=== PATIENT | female | born 1990 | race African-American/Black ===

== ENCOUNTER 2022-02-10 20:48 | Emergency (ER) | payer SELFPAY ==
[~2022-02-10] VITALS: Ht 162.6 cm; Wt 142.0 kg
[2022-02-10] MEDS ORDERED: BO1 TP (21:34)
[2022-02-10 22:17] VITALS: BP 114/85
== END 2022-02-10 22:20 | disposition home or self-care (01) ==
LOC: ER 20:48
DX: S21.012A Laceration without foreign body of left breast, initial encounter (principal); Y08.89XA Assault by other specified means, initial encounter; Y93.9 Activity, unspecified; Y92.9 Unspecified place or not applicable
CPT/HCPCS: 12013; 99283

== ENCOUNTER 2023-02-04 15:08 | Emergency (ER) | payer MEDICAID ==
[~2023-02-04] VITALS: Ht 162.6 cm; Wt 149.7 kg
[~2023-02-04 15:08] MED LIST: BO1 TP
[2023-02-04 15:45] VITALS: BP 151/98; TEMP 99.9
[2023-02-04] MEDS ORDERED: KETOROLAC 30MG/ML VIAL IV STA (18:16)
[2023-02-04] MEDS ORDERED: IPRATROPIUM BROMIDE (0.02%) 0.5MG/2.5ML NEB HHN STA (18:16)
[2023-02-04] MEDS ORDERED: SODIUM CHLORIDE 0.9% 1,000 ML IV ONE (18:30)
[2023-02-04] MEDS ORDERED: ALBUTEROL (0.083%) 2.5MG/3ML NEB HHN SCH (18:30)
[2023-02-04 19:24] LABS: BASOPHILS % 0.5 % (0.0-2.0); EOSINOPHILS % 0.3 % (0.0-5.0); HEMOGLOBIN. 12.4 g/dL (12.0-16.0); LYMPHOCYTES % 46.5 % (20.0-50.0); MEAN CORPUSCULAR HEMOGLOBIN 26.3 pg (28.0-32.0); MEAN CORPUSCULAR HGB CONC 32.6 g/dL (31.0-37.0); MEAN CORPUSCULAR VOLUME 80.6 fL (81.0-99.0); MEAN PLATELET VOLUME 8.2 fl (7.4-10.4); MONOCYTES % 13.4 % (2.0-8.0); NEUTROPHILS % 39.3 % (40.0-76.0); PLATELET 330 x1000/uL (130-400); RED BLOOD CELL COUNT 4.71 mill/uL (4.2-5.4); RED CELL DISTRIBUTION WIDTH 14.4 % (11.6-14.6); WHITE BLOOD COUNT 3.9 x1000/uL (4.5-11.0)
[2023-02-04 19:30] LABS: CHLORIDE 103 mEq/L (98-107); INDEX HEMOLYSI 1 (1-3); INDEX ICTERIC 1 (1-4); INDEX LIPEMIC 1 (1-3); POTASSIUM 3.5 mEq/L (3.5-5.1); SODIUM 136 mEq/L (136-145)
[2023-02-04 19:37] LABS: ALANINE AMINOTRANSFERASE 21 IU/L (13-61); ALBUMIN 3.8 g/dL (3.4-5.0); ASPARTATE AMINOTRANSFERASE 19 IU/L (15-37); BILIRUBIN TOTAL 0.2 mg/dL (0.1-1.0); CALCIUM 8.7 mg/dL (8.5-10.1); CARBON DIOXIDE 25 mEq/L (21-32); CREATININE 1.2 mg/dL (0.6-1.3); GLUCOSE 109 mg/dL (70-105); PROTEIN TOTAL 8.3 g/dL (6.0-8.3); UREA NITROGEN BLOOD 10 mg/dL (7-21)
[2023-02-04] MEDS ORDERED: KETOROLAC 30MG/ML VIAL IV NR (22:00)
[2023-02-04] MEDS ORDERED: IPRATROPIUM BROMIDE (0.02%) 0.5MG/2.5ML NEB HHN NR (22:00)
[2023-02-04 22:04] VITALS: PULSE 68; RESP 22; O2SAT 98
[2023-02-04 22:39] VITALS: PULSE 72; RESP 20; O2SAT 99
[2023-02-04] MEDS: ALBUTEROL (0.083%) 2.5MG/3ML NEB HHN SCH ×2 (22:39→23:03)
[2023-02-04 23:03] VITALS: PULSE 72; RESP 20; O2SAT 99
== END 2023-02-05 01:40 | disposition home or self-care (01) ==
LOC: ER 15:08
DX: U07.1 COVID-19 (principal)
CPT/HCPCS: 80053; 81025; 83605; 85025; 36415; 84145; 71045; 94640; 93005; 99285; Z7610 ×3; J7030; 94644